=== PATIENT | female | born 1995 | race Two or more races ===

== ENCOUNTER 2024-05-25 18:27 | Observation (INO) | payer MEDICAID, OTHER ==
[~2024-05-25] VITALS: Ht 157.5 cm; Wt 79.4 kg
--- NOTE | 2024-05-25 22:00 | DVHDS2 ---
Physician Discharge Progress N Final Diagnosis: well being established Operations or Procedures: Operations or Procedures S: 29yo IUP@26.3wks presents to OB triage with c/o DFM and stomach pain that has been intermittent for the last 2 weeks. PNC at [facility], her OB has already ordered preeclampsia labs that pt will go to [facility] appt tmrw to draw labs. Declines preeclampsia labs here at [facility]. Denies UCs/LOF/VB/VALDES/vision changes. O: VSS NST reactive UA dip WNL A: 29yo IUP@26.3wks well being established P: D/C home Pt educated on kick counts starting at 28 weeks Preeclampsia warning signs reviewed PTL precautions given and when to return to the hospital. Dr. Chambers consulted, agrees with POC. Condition on Discharge: Stable Disposition: Home Discharge Instructions: Diet: Regular Activity: No Restrictions, As Tolerated Medications: see med list Follow Up Care: Specialist: f/u with [facility] on 05/26/24 Discharge Statement: "Patient was advised to return to the ER or call 911 if any headaches, dizziness, shortness of breath, chest pain, abdominal pain, bleeding, fevers, or worsening of medical condition. Patient was counseled about treatment plan, medications, possible side effects, patientverbalized understanding. All questions were answered to the best of my ability. 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
== END 2024-05-25 20:29 | disposition home or self-care (01) ==
LOC: LDRP 18:27
PROVIDERS: ADMIT Obstetrics & Gynecology; ATTEND Obstetrics & Gynecology
DX: O36.8120 Decreased fetal movements, second trimester, not applicable or unspecified (principal); O26.892 Other specified pregnancy related conditions, second trimester; R10.9 Unspecified abdominal pain; Z3A.26 26 weeks gestation of pregnancy; Z79.899 Other long term (current) drug therapy
CPT/HCPCS: 59025; 81002; 94760; G0378